=== PATIENT | male | born 1995 | race Caucasian/White ===

== ENCOUNTER 2018-06-29 16:46 | Emergency (ER) | payer OTHER ==
[~2018-06-29] VITALS: Ht 162.6 cm; Wt 59.1 kg
[2018-06-29 16:48] VITALS: BP 117/99
== END 2018-06-29 20:30 | disposition left against medical advice (07) ==
LOC: EMS 16:47
DX: R11.2 Nausea with vomiting, unspecified (principal); F17.210 Nicotine dependence, cigarettes, uncomplicated; F12.90 Cannabis use, unspecified, uncomplicated; F19.90 Other psychoactive substance use, unspecified, uncomplicated; F11.90 Opioid use, unspecified, uncomplicated; Z53.21 Procedure and treatment not carried out due to patient leaving prior to being seen by health care provider